=== PATIENT | male | born 1990 | race Caucasian/White ===

== ENCOUNTER 2017-01-23 22:20 | Inpatient (IN) | payer OTHER ==
[2017-01-23 22:25] VITALS: BMI 32.5
--- NOTE | 2017-01-23 23:17 | DR.GENAD ---
HPI - PCP Primary Care Physician: NFD - Complaint/Symptoms Chief Complaint Doctors Comments: Patient complains of pain and swelling in his left arm for the past two days. 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 Family states they are always pulling ticks from his body but has not seen any recently. He denies fever, chills, nausea or vomiting. He deniess chest pain or SOB. States he has been working in the sun and had been tanning but he was at a wedding today and one of the attendants told him he had cellulitis and he needed to go to the doctor. States his last tetanus was 7-8 years ago when he went to [facility]. States he drinks occasionally but denies tobacco or drug usage. States he takes proteins for body building but is not using any injections. He has not local doctor. Chief Complaint:: PT STATES, "MY LEFT ARM HAS BEEN SWELLING AND RED SINCE THURSDAY." - Nurses notes reviewed Nurses Notes Review: Yes - Source History Provided: Patient - Mode of Arrival Mode of Arrival: Ambulatory - Timing Onset of Chief Complaint: 01/20/17 Came on: Gradually - Duration Duration: Constant How lon Duration: Days - Location Location: left arm - Severity Severity: Moderate, Severe - Modifying Factors Worsens:: movement Improves:: nothing PMH - PMH Past Medical History: No Past Surgical History: No - Family History History of Family Medical Conditions: Yes Family Medical History: Diabetes Mellitus - Social History Alcohol Use: Occasionally Do you use any recreational Drugs:: No Lives With: Family Lives Where: Home - infectious screening In the last 2 months have you had wt loss of >10#?: NO Have you had fever, night sweats or hemotysis?: No Have you traveled outside the country in the last 6 months?: No Isolation: Standard ROS - Review of Systems Constitutional: No Symptoms Reported Eyes: No Symptoms Reported. negative: See HPI, Eye Pain, Blurred Vision, Tearing, Discharge, Photophobia, Diplopia, Other ENTM: No Symptoms Reported. negative: See HPI, Ear Pain, Ear Discharge, Pulling on Ears, Hearing Loss, Nose Pain, Nose Discharge, Epistaxis, Nose Congestion, Mouth Pain, Mouth Swelling, Loose Teeth, Drooling, Throat Pain, Throat Swelling, Ear Foreign Body Respiratoy: No Symptoms Reported Cardiovascular: No Symptoms Reported. negative: See HPI, Chest Pain, Edema, Palpitations, Syncope, Cyanosis, Skin Mottling, Other Gastrointestinal/Abdominal: No Symptoms Reported. negative: See HPI, Abdominal Pain, Constipation, Diarrhea, Nausea, Vomiting, Food Intolerance, Other Genitourinary: No Symptoms Reported Neurological: No Symptoms Reported. negative: See HPI, Anxiety, Depressed, Emotional Problems, Headache, Numbness, Paresthesia, Pre-existing Deficit, Seizure, Tingling, Tremors, Weakness, Dizziness, Problems Walking, Speech Problem, Other Musculoskeletal: No Symptoms Reported, Left, Arm (with swelling and pain biceps area with nodule 4 cm, tender) Integumentary: No Symptoms Reported, Lesions, Rash (left arm with swelling and erythema; tender; firm nodule 4 cm left biceps area, upper; no discharge or puncture noted) Hematologic/Lymphatic: No Symptoms Reported Endocrine: No Symptoms Reported Psychiatric: No Symptoms Reported PE - Vital Signs Vitals: Temperature 97.9 F Pulse Rate 85 Respiratory Rate 20 Blood Pressure 157/69 O2 Sat by Pulse Oximetry 99 - General Limitations: No Limitations General Appearance: Alert, In Distress (moderate) - Head Head Exam: Normal Inspection, Atraumatic, Normocephalic - Eyes Eye exam: Normal Appearance, PERRL, EOMI. negative: Scleral Icterus, Conjunctival Injection, Nystagmus, Miosis, Mydrasis, Periorbital Swelling, Periorbital Tenderness, Other - ENT ENT Exam: Normal Exam, Normal Oropharynx, Normal External Ear Exam, Mucous Membranes Moist, TM's Normal Bilaterally External Ear Exam: Normal External Inspection TM/Canal Exam: Bilateral Normal Nose Exam: Normal Nose Exam Mouth Exam: Normal Inspection Throat Exam: Normal Inspection. negative: Tonsillar Erythema, Tonsillomegaly, Tonsillar Exudate, R Peritonsillar Mass, L Peritonsillar Mass, Muffled Voice, Other - Neck Neck Exam: Normal Inspection, Full ROM, Trachea Midline. negative: Tenderness, Meningismus, Lymphadenopathy, Thyromegaly, Other - Chest Chest Inspection: Normal Inspection, Symmetric Chest Wall Rise - Respiratory Respiratory Exam: Normal Lung Sounds Bilat Respiratory Exam: Bilateral Clear to Auscultation - Cardiovascular Cardiovascular Exam: Regular Rate, Normal Rhythm, Normal Heart Sounds. negative : Bradycardia, Tachycardia, Irregular Rhythm, Systolic Murmur, Diastolic Murmur , Rubs, Gallop, Clicks, JVD, +S1, +S2, +S3, +S4, Other - Abdominal Exam Abdominal Exam: Normal Inspection, Normal Bowel Sounds, Soft. negative: Distention, Tenderness, Guarding, Rebound, Rigidity, Dimnished Bowel Sounds, Hyperactive Bowel Sounds, Hypoactive Bowel Sounds, Organomegaly, Trauma, Incision, Ascites, Mass, Bruit, Pulsatile Mass, Hernia, Other Abdominal Tenderness: negative: RUQ, RLQ, LUQ, LLQ, Epigastrium, Suprapubic, Diffuse, Mild, Moderate, Severe, Other - Extremities Extremities Exam: Normal Inspection, Full ROM, Tenderness (right arm with tenderness, red, erythematous with 4 cm firm nodule proximal biceps;no discharge or puncture noted), Normal Capillary Refill. negative: Edema, Joint Swelling, Calf Tenderness, Other - Back Back Exam: Normal Inspection, Full ROM. negative: Tenderness, (R) CVA Tenderness, (L) CVA Tenderness, Muscle Spasm, Paraspinal Tenderness, Vertebral Tenderness, Rashes, (R) Sciatic Notch Tenderness, (L) Sciatic Notch Tendern, (R ) Straight Leg Raise, (L) Straight Leg Raise, Other - Neurologic Neurological Exam: Alert, Oriented X3, CN II-XII Intact, Normal Gait, Reflexes Normal - Psychiatric Psychiatric Exam: Normal Affect, Normal Mood. negative: Depressed, Agitated, Anxious, Flat Affect, Manic, Homicidal Ideation, Suicidal Ideation, Other - Skin Skin Exam: Warm, Dry, Intact, Normal Color, Rash, Erythema (right upper arm with erythema, swelling and tenderness) Course - Reevaluation 1st: Improved - Consultation Called: 02:26 Call Returned: 02:26 (Dr. Campos to admit) - Education/Counseling Education/Counseling: Patient, Family Educated On: Treatment, Diagnosis, Prognosis, Needs for Follow Up ROR - Labs Reviewed Laboratory Results Reviewed?: Yes (all labs and x-ray results reviewed and discussed with patient) Result Diagrams: 01/23/17 23:15 01/23/17 23:15 Laboratory: WBC 14.0 X10^3/uL (3.6-10.0) H 01/23/17 23:15 RBC 4.72 X10^6/uL (4.7-6.0) 01/23/17 23:15 Hgb 15.0 g/dL (13.5-18.0) 01/23/17 23:15 Hct 43.6 % (42.0-54.0) 01/23/17 23:15 MCV 92.4 fL (80.0-100.0) 01/23/17 23:15 MCH 31.7 pg (27.0-34.0) 01/23/17 23:15 MCHC 34.3 g/dL (33.0-35.0) 01/23/17 23:15 RDW 13.4 % (11.6-16.5) 01/23/17 23:15 Plt Count 144 X10^3/uL (150.0-450.0) L 01/23/17 23:15 MPV 9.8 fL (7.4-11.0) 01/23/17 23:15 Neut % 75.4 % (42.0-75.0) H 01/23/17 23:15 Lymph % 15.5 % (21.0-51.0) L 01/23/17 23:15 [place] % 8.1 % (0.0-13.0) 01/23/17 23:15 Eos % 0.5 % (0.9-2.9) L 01/23/17 23:15 Baso % 0.5 % (0.2-1.0) 01/23/17 23:15 Neut # 10.6 x10^3/uL (2.2-4.8) H 01/23/17 23:15 Lymph # 2.2 X10^3/uL (1.3-2.9) 01/23/17 23:15 [place] # 1.1 x10^3/uL (0.3-0.8) H 01/23/17 23:15 Eos # 0.1 x10^3/uL (0.0-0.2) 01/23/17 23:15 Baso # 0.1 X10^3/uL (0.0-0.1) 01/23/17 23:15 Absolute Nucleated RBC 0.0 /100WBC 01/23/17 23:15 INR Target Range - 01/23/17 23:15 INR 1.12 (0.8-1.3) 01/23/17 23:15 PTT 31.3 SECONDS (22.9-36.5) 01/23/17 23:15 PTT Comment - 01/23/17 23:15 D-Dimer 445 ng/mL (0-400) H* 01/23/17 23:15 Sodium 141 mmol/L (136-145) 01/23/17 23:15 Corrected Sodium TNP 01/23/17 23:15 Potassium 3.4 mmol/L (3.5-5.1) L 01/23/17 23:15 Chloride 105 mmol/L (98-107) 01/23/17 23:15 Carbon Dioxide 27.2 mmol/L (21-32) 01/23/17 23:15 BUN 13 mg/dL (7-18) 01/23/17 23:15 Creatinine 1.27 mg/dL (0.70-1.30) 01/23/17 23:15 Est GFR (MDRD) Af Amer > 60 (>60) 01/23/17 23:15 Est GFR (MDRD) Non-Af > 60 (>60) 01/23/17 23:15 Glucose 104 mg/dL (65-99) H 01/23/17 23:15 Lactic Acid 0.7 mmol/L (0.4-2.0) 01/23/17 23:15 Calcium 8.9 mg/dL (8.5-10.1) 01/23/17 23:15 Corrected Calcium TNP 01/23/17 23:15 Total Bilirubin 0.60 mg/dL (0.2-1.0) 01/23/17 23:15 AST 27 Units/L (15-37) 01/23/17 23:15 ALT 28 Units/L (12-78) 01/23/17 23:15 Alkaline Phosphatase 70 Units/L (46-116) 01/23/17 23:15 Total Protein 7.5 g/dL (6.4-8.2) 01/23/17 23:15 Albumin 3.6 g/dL (3.4-5.0) 01/23/17 23:15 Globulin 3.9 g/dL (2.5-4.5) 01/23/17 23:15 Albumin/Globulin Ratio 0.9 Ratio (1.1-2.1) L 01/23/17 23:15 - XRAY XRAY Interpreted by: Radiologist (X-ray left humrus: Ciarra cute osseous abnormality. Cellulitis possible. CXR: no acute chest process) XRAY Findings: Doppler L upper arm: Nolef uper extremity deep vein thrombus identified. - Diagnosis Discharge Problem: Cellulitis of left upper arm, Hypokalemia - Discharge Plan Disposition: ADMITTED INPATIENT Condition: Stable - Follow ups/Referrals Follow ups/Referrals: NFD,None [Primary Care Provider] - 3 days - Instructions
[2017-01-23 23:38] LABS: BASOPHILS # (AUTO) 0.1 X10^3/uL (0.0-0.1); BASOPHILS % (AUTO) 0.5 % (0.2-1.0); EOSINOPHILS # (AUTO) 0.1 x10^3/uL (0.0-0.2); EOSINOPHILS % (AUTO) 0.5 % (0.9-2.9); HEMATOCRIT 43.6 % (42.0-54.0); LYMPHOCYTES # (AUTO) 2.2 X10^3/uL (1.3-2.9); LYMPHOCYTES % (AUTO) 15.5 % (21.0-51.0); MEAN CORPUSCULAR HEMOGLOBIN 31.7 pg (27.0-34.0); MEAN CORPUSCULAR HGB CONC 34.3 g/dL (33.0-35.0); MEAN CORPUSCULAR VOLUME 92.4 fL (80.0-100.0); MEAN PLATELET VOLUME 9.8 fL (7.4-11.0); MONOCYTES # (AUTO) 1.1 x10^3/uL (0.3-0.8); MONOCYTES % (AUTO) 8.1 % (0.0-13.0); NEUTROPHILS # (AUTO) 10.6 x10^3/uL (2.2-4.8); NEUTROPHILS % (AUTO) 75.4 % (42.0-75.0); PLATELET COUNT 144 X10^3/uL (150.0-450.0); RED BLOOD COUNT 4.72 X10^6/uL (4.7-6.0); RED CELL DISTRIBUTION WIDTH 13.4 % (11.6-16.5)
[2017-01-23] MEDS ORDERED: NS 1000 ML 1,000 ML IV SCH (23:45)
[2017-01-23 23:49] LABS: ALANINE AMINOTRANSFERASE 28 Units/L (12-78); ALBUMIN 3.6 g/dL (3.4-5.0); ALKALINE PHOSPHATASE 70 Units/L (46-116); ASPARTATE AMINO TRANSFERASE 27 Units/L (15-37); BLOOD UREA NITROGEN 13 mg/dL (7-18); CALCIUM 8.9 mg/dL (8.5-10.1); CARBON DIOXIDE 27.2 mmol/L (21-32); CHLORIDE 105 mmol/L (98-107); CREATININE 1.27 mg/dL (0.70-1.30); GLUCOSE 104 mg/dL (65-99); SODIUM 141 mmol/L (136-145); TOTAL PROTEIN 7.5 g/dL (6.4-8.2); eGFR BLACK RACES > 60 (>60); eGFR NON BLACK RACES > 60 (>60)
[2017-01-23] MEDS ORDERED: MERREM VIAL 1,000 MG in NS 100 ML IV 100 ML IV STA (23:55)
[2017-01-24] MEDS ORDERED: NS 100 ML IV 100 ML IV ONE ×2 (00:01→14:14)
[2017-01-24] MEDS ORDERED: MERREM VIAL ONE (00:02)
[2017-01-24 00:09] LABS: LACTIC ACID 0.7 mmol/L (0.4-2.0)
[2017-01-24 00:16] LABS: D DIMER 445 ng/mL (0-400)
--- NOTE | 2017-01-24 00:40 | RAD ---
Left humerus two views Indication: Possible cellulitis. Findings: There is no cortical lucency or malalignment. Shoulder and elbow joints are grossly intact . Mild subcutaneous soft tissue stranding suggested. Impression: No acute osseous abnormality. Cellulitis possible Reported By:
--- NOTE | 2017-01-24 00:40 | RAD ---
Chest AP portable Indication: Chest pain. Findings: There is no pneumothorax, effusion or consolidation. Heart size is normal. Impression: No acute chest process. Reported By:
--- NOTE | 2017-01-24 01:33 | VAS ---
Ultrasound left upper extremity venous Doppler Indication: Left arm cellulitis Technique: Dynamic grayscale, color and spectral Doppler flow is a left upper extremity with barbara cirilo techniques. Findings: The left jugular and subclavian vein show normal respiratory phasicity and are patent. The left brachial vein, basilic vein and axillary vein are patent and compressible. Subcutaneous edema noted. Impression: No left upper extremity deep vein thrombus identified. Cellulitis suggested. Reported By:
[2017-01-24] MEDS ORDERED: NORCO 5/325 MG TAB PO PRN (02:35)
[2017-01-24] MEDS ORDERED: PHENERGAN TAB 25 MG PO PRN (02:35)
[2017-01-24] MEDS ORDERED: VANCOMYCIN 1 GM PREMIX (ADDVANTAGE) 250 ML IV SCH (03:00)
[2017-01-24] MEDS ORDERED: ZOSYN VIAL 3.375 GM IV ONE (04:01)
[2017-01-24] MEDS ORDERED: NS 100 ML IV + SPIKE MINIBAG* 100 ML IV ONE (04:02)
[2017-01-24] MEDS: D5 1/2 NS + KCL 20 MEQ/L 1,000 ML IV SCH ×2 (04:08→15:03)
[2017-01-24] MEDS ORDERED: ZOSYN VIAL 3.375 GM 3.375 GM in NS 100 ML IV + SPIKE MINIBAG* 100 ML IV SCH (06:00)
[2017-01-24 07:07] LABS: BASOPHILS % (AUTO) 0.3 % (0.2-1.0); EOSINOPHILS # (AUTO) 0.1 x10^3/uL (0.0-0.2); EOSINOPHILS % (AUTO) 0.4 % (0.9-2.9); HEMATOCRIT 44.8 % (42.0-54.0); HEMOGLOBIN 15.1 g/dL (13.5-18.0); LYMPHOCYTES # (AUTO) 1.6 X10^3/uL (1.3-2.9); LYMPHOCYTES % (AUTO) 10.6 % (21.0-51.0); MEAN CORPUSCULAR HEMOGLOBIN 31.4 pg (27.0-34.0); MEAN CORPUSCULAR HGB CONC 33.8 g/dL (33.0-35.0); MEAN CORPUSCULAR VOLUME 93.1 fL (80.0-100.0); MEAN PLATELET VOLUME 10.1 fL (7.4-11.0); MONOCYTES # (AUTO) 1.2 x10^3/uL (0.3-0.8); MONOCYTES % (AUTO) 7.9 % (0.0-13.0); NEUTROPHILS # (AUTO) 11.9 x10^3/uL (2.2-4.8); NEUTROPHILS % (AUTO) 80.8 % (42.0-75.0); PLATELET COUNT 146 X10^3/uL (150.0-450.0); RED BLOOD COUNT 4.81 X10^6/uL (4.7-6.0); RED CELL DISTRIBUTION WIDTH 13.6 % (11.6-16.5); WHITE BLOOD COUNT 14.8 X10^3/uL (3.6-10.0)
[2017-01-24] MEDS: LOVENOX INJ 40 MG SYR SC SCH (08:29)
[2017-01-24] MEDS: PROTONIX INJ 40 MG VIAL IVP SCH (08:29)
[2017-01-24] MEDS: MOTRIN TAB 600 MG PO PRN ×2 (12:07→13:01)
[2017-01-24] MEDS ORDERED: TYGACIL 50 MG VIAL 100 MG in NS 100 ML IV 100 ML IV ONE (12:58)
[2017-01-24] MEDS ORDERED: BENADRYL INJ 50 MG VIAL ONE (14:15)
[2017-01-24] MEDS ORDERED: TYGACIL 50 MG VIAL IV ONE (14:15)
[2017-01-24] MEDS ORDERED: SOLU-Medrol 40 MG VIAL ONE (14:16)
[2017-01-24] MEDS: SOLU-Medrol 40 MG VIAL IVP SCH ×2 (14:33→22:21)
[2017-01-24] MEDS: BENADRYL INJ 50 MG VIAL IVP SCH ×2 (14:33→18:16)
--- NOTE | 2017-01-24 14:45 | US ---
HISTORY: Cellulitis, possible abscess Study: Limited soft tissue ultrasound Comparison: None Technique: Multiple scale and color flow images of the left upper extremity were obtained. Findings: There is soft tissue edema compatible with history cellulitis but no fluid collections are seen. IMPRESSION: 1. Soft tissue swelling with no fluid collections. Reported By:
[2017-01-24] MEDS: VANCOMYCIN HCL IV SCH (15:34)
[2017-01-24] MEDS: NS IV SCH (15:34)
[2017-01-24] MEDS: TYGACIL 50 MG VIAL 50 MG in NS 100 ML IV 100 ML IV SCH (22:21)
[2017-01-25] MEDS: BENADRYL INJ 50 MG VIAL IVP SCH ×2 (00:59→06:05)
[2017-01-25] MEDS: D5 1/2 NS + KCL 20 MEQ/L 1,000 ML IV SCH ×4 (00:59→18:28)
[2017-01-25] MEDS: SOLU-Medrol 40 MG VIAL IVP SCH (06:04)
[2017-01-25 06:28] LABS: BASOPHILS % (AUTO) 0.1 % (0.2-1.0); HEMATOCRIT 48.3 % (42.0-54.0); HEMOGLOBIN 16.2 g/dL (13.5-18.0); LYMPHOCYTES # (AUTO) 0.9 X10^3/uL (1.3-2.9); LYMPHOCYTES % (AUTO) 6.6 % (21.0-51.0); MEAN CORPUSCULAR HEMOGLOBIN 31.2 pg (27.0-34.0); MEAN CORPUSCULAR HGB CONC 33.5 g/dL (33.0-35.0); MEAN CORPUSCULAR VOLUME 93.2 fL (80.0-100.0); MEAN PLATELET VOLUME 10.2 fL (7.4-11.0); MONOCYTES # (AUTO) 0.2 x10^3/uL (0.3-0.8); MONOCYTES % (AUTO) 1.1 % (0.0-13.0); NEUTROPHILS % (AUTO) 92.2 % (42.0-75.0); PLATELET COUNT 166 X10^3/uL (150.0-450.0); RED BLOOD COUNT 5.18 X10^6/uL (4.7-6.0); RED CELL DISTRIBUTION WIDTH 13.3 % (11.6-16.5); WHITE BLOOD COUNT 14.1 X10^3/uL (3.6-10.0)
[2017-01-25 06:41] LABS: ALANINE AMINOTRANSFERASE 22 Units/L (12-78); ALBUMIN 3.2 g/dL (3.4-5.0); ALKALINE PHOSPHATASE 75 Units/L (46-116); ASPARTATE AMINO TRANSFERASE 20 Units/L (15-37); BLOOD UREA NITROGEN 14 mg/dL (7-18); CALCIUM 8.8 mg/dL (8.5-10.1); CARBON DIOXIDE 21.2 mmol/L (21-32); CHLORIDE 106 mmol/L (98-107); COR CA(FOR HYPOALB) 9.4 mg/dL (8.5-10.1); COR NA(FOR HYPERGLY) 140 mmol/L (136-145); CREATININE 1.04 mg/dL (0.70-1.30); GLUCOSE 157 mg/dL (65-99); SODIUM 139 mmol/L (136-145); TOTAL PROTEIN 7.4 g/dL (6.4-8.2); eGFR BLACK RACES > 60 (>60); eGFR NON BLACK RACES > 60 (>60)
[2017-01-25 07:39] LABS: BAND NEUTROPHILS % 5 % (0-10); PLATELET MORPHOLOGY COMMENT NORMAL (NORMAL)
[2017-01-25] MEDS: NS IV SCH ×2 (10:03→21:00)
[2017-01-25] MEDS: VANCOMYCIN HCL IV SCH ×2 (10:03→21:00)
[2017-01-25] MEDS: TYGACIL 50 MG VIAL 50 MG in NS 100 ML IV 100 ML IV SCH ×2 (10:03→22:57)
[2017-01-25] MEDS: PROTONIX INJ 40 MG VIAL IVP SCH (10:03)
[2017-01-25] MEDS: LOVENOX INJ 40 MG SYR SC SCH (10:03)
[2017-01-25] MEDS ORDERED: PHARMACY COMMENT IV SCH (20:45)
[2017-01-25] MEDS: MOTRIN TAB 600 MG PO PRN (20:59)
[2017-01-26 05:20] LABS: BASOPHILS % (AUTO) 0.2 % (0.2-1.0); HEMATOCRIT 45.6 % (42.0-54.0); HEMOGLOBIN 15.1 g/dL (13.5-18.0); LYMPHOCYTES # (AUTO) 1.4 X10^3/uL (1.3-2.9); LYMPHOCYTES % (AUTO) 7.1 % (21.0-51.0); MEAN CORPUSCULAR HEMOGLOBIN 31.1 pg (27.0-34.0); MEAN CORPUSCULAR HGB CONC 33.2 g/dL (33.0-35.0); MEAN CORPUSCULAR VOLUME 93.7 fL (80.0-100.0); MEAN PLATELET VOLUME 10.9 fL (7.4-11.0); MONOCYTES % (AUTO) 5.1 % (0.0-13.0); NEUTROPHILS % (AUTO) 87.6 % (42.0-75.0); PLATELET COUNT 170 X10^3/uL (150.0-450.0); RED BLOOD COUNT 4.86 X10^6/uL (4.7-6.0); RED CELL DISTRIBUTION WIDTH 13.5 % (11.6-16.5); WHITE BLOOD COUNT 19.4 X10^3/uL (3.6-10.0)
[2017-01-26 05:32] LABS: ALANINE AMINOTRANSFERASE 20 Units/L (12-78); ALKALINE PHOSPHATASE 68 Units/L (46-116); ASPARTATE AMINO TRANSFERASE 13 Units/L (15-37); BLOOD UREA NITROGEN 17 mg/dL (7-18); CALCIUM 8.4 mg/dL (8.5-10.1); CARBON DIOXIDE 24.1 mmol/L (21-32); CHLORIDE 107 mmol/L (98-107); COR CA(FOR HYPOALB) 9.2 mg/dL (8.5-10.1); COR NA(FOR HYPERGLY) 140 mmol/L (136-145); CREATININE 1.02 mg/dL (0.70-1.30); GLUCOSE 120 mg/dL (65-99); SODIUM 140 mmol/L (136-145); TOTAL PROTEIN 6.7 g/dL (6.4-8.2); eGFR BLACK RACES > 60 (>60); eGFR NON BLACK RACES > 60 (>60)
[2017-01-26] MEDS: D5 1/2 NS + KCL 20 MEQ/L 1,000 ML IV SCH ×2 (07:15→08:46)
[2017-01-26] MEDS: PROTONIX INJ 40 MG VIAL IVP SCH (08:45)
[2017-01-26] MEDS: LOVENOX INJ 40 MG SYR SC SCH (08:45)
[2017-01-26 09:21] LABS: CREATININE 0.99 mg/dL (0.70-1.30); VANCOMYCIN,TROUGH 4.2 ug/mL (15-20)
[2017-01-26] MEDS: VANCOMYCIN HCL IV SCH (10:30)
[2017-01-26] MEDS: NS IV SCH (10:30)
[2017-01-26] MEDS: TYGACIL 50 MG VIAL 50 MG in NS 100 ML IV 100 ML IV SCH ×2 (13:44→22:43)
--- NOTE | 2017-01-26 13:51 | PCM.PROG ---
Progress Note - Progress Note for Day of Date: 01/26/17 - Subjective Subjective: left upper arm pain and redness with localized swelling, continue iv atbx, elevate lue. pain control - Past Medical Family Social History Past Med/Fam/Surg Hx: No changes since H&P Allergies: Allergies Ceftibuten [From Cedax] Allergy (Verified 01/23/17 22:26) - Review of Systems ROS: No change since H&P - Vital Signs and I&O's Vital Signs: Temperature 97.8 F Pulse Rate [Right Radial] 66 Respiratory Rate 18 Blood Pressure [Left Arm] 117/57 Blood Pressure [Right Arm] 141/58 O2 Sat by Pulse Oximetry 96 Intake and Output: Intake & Output 01/24/17 01/25/17 01/26/17 01/27/17 11:59 11:59 11:59 11:59 Intake Total 100 2550 4606 Balance 100 2550 4606 - Physical Exam Oriented: Normal Eyes: Normal Ear: Normal Nose: Normal Throat: Normal Respiratory: Normal Cardiovascular: Normal : Normal Auscultation: Bowel Sounds: Normal Palpation: Normal Tenderness: Normal Skin: Normal Musculoskeletal: Swelling, Tender Psychiatric: Normal Mood Description: Calm Speech Pattern: Clear, Appropriate - Laboratory and Diagnostics Result Diagrams: 01/26/17 03:31 01/26/17 09:00 Labs: Laboratory WBC 19.4 X10^3/uL (3.6-10.0) H 01/26/17 03:31 RBC 4.86 X10^6/uL (4.7-6.0) 01/26/17 03:31 Hgb 15.1 g/dL (13.5-18.0) 01/26/17 03:31 Hct 45.6 % (42.0-54.0) 01/26/17 03:31 MCV 93.7 fL (80.0-100.0) 01/26/17 03:31 MCH 31.1 pg (27.0-34.0) 01/26/17 03:31 MCHC 33.2 g/dL (33.0-35.0) 01/26/17 03:31 RDW 13.5 % (11.6-16.5) 01/26/17 03:31 Plt Count 170 X10^3/uL (150.0-450.0) 01/26/17 03:31 Plt Count Comment Adequate (ADEQUATE) 01/25/17 05:20 MPV 10.9 fL (7.4-11.0) 01/26/17 03:31 Neut % 87.6 % (42.0-75.0) H 01/26/17 03:31 Lymph % 7.1 % (21.0-51.0) L 01/26/17 03:31 [place] % 5.1 % (0.0-13.0) 01/26/17 03:31 Eos % 0.0 % (0.9-2.9) L 01/26/17 03:31 Baso % 0.2 % (0.2-1.0) 01/26/17 03:31 Neut # 17.0 x10^3/uL (2.2-4.8) H 01/26/17 03:31 Lymph # 1.4 X10^3/uL (1.3-2.9) 01/26/17 03:31 [place] # 1.0 x10^3/uL (0.3-0.8) H 01/26/17 03:31 Eos # 0.0 x10^3/uL (0.0-0.2) 01/26/17 03:31 Baso # 0.0 X10^3/uL (0.0-0.1) 01/26/17 03:31 Absolute Nucleated RBC 0.0 /100WBC 01/26/17 03:31 Total Counted 100 01/25/17 05:20 Neutrophils % (Manual) 88 % (39-76) H 01/25/17 05:20 Band Neutrophils % 5 % (0-10) 01/25/17 05:20 Lymphocytes % (Manual) 4 % (13-43) L 01/25/17 05:20 Monocytes % (Manual) 1 % (4-9) L 01/25/17 05:20 Eosinophils % (Manual) 2 % (0-6) 01/25/17 05:20 Plt Morphology Comment Normal (NORMAL) 01/25/17 05:20 RBC Morphology Normal (NORMAL) 01/25/17 05:20 INR Target Range - 01/23/17 23:15 INR 1.12 (0.8-1.3) 01/23/17 23:15 PTT 31.3 SECONDS (22.9-36.5) 01/23/17 23:15 PTT Comment - 01/23/17 23:15 D-Dimer 445 ng/mL (0-400) H* 01/23/17 23:15 Sodium 140 mmol/L (136-145) 01/26/17 03:31 Corrected Sodium 140 mmol/L (136-145) 01/26/17 03:31 Potassium 4.1 mmol/L (3.5-5.1) 01/26/17 03:31 Chloride 107 mmol/L (98-107) 01/26/17 03:31 Carbon Dioxide 24.1 mmol/L (21-32) 01/26/17 03:31 BUN 17 mg/dL (7-18) 01/26/17 03:31 Creatinine 0.99 mg/dL (0.70-1.30) 01/26/17 09:00 Est GFR (MDRD) Af Amer > 60 (>60) 01/26/17 03:31 Est GFR (MDRD) Non-Af > 60 (>60) 01/26/17 03:31 Glucose 120 mg/dL (65-99) H 01/26/17 03:31 Lactic Acid 0.7 mmol/L (0.4-2.0) 01/23/17 23:15 Calcium 8.4 mg/dL (8.5-10.1) L 01/26/17 03:31 Corrected Calcium 9.2 mg/dL (8.5-10.1) 01/26/17 03:31 Total Bilirubin 0.40 mg/dL (0.2-1.0) 01/26/17 03:31 AST 13 Units/L (15-37) L 01/26/17 03:31 ALT 20 Units/L (12-78) 01/26/17 03:31 Alkaline Phosphatase 68 Units/L (46-116) 01/26/17 03:31 Total Protein 6.7 g/dL (6.4-8.2) 01/26/17 03:31 Albumin 3.0 g/dL (3.4-5.0) L 01/26/17 03:31 Globulin 3.7 g/dL (2.5-4.5) 01/26/17 03:31 Albumin/Globulin Ratio 0.8 Ratio (1.1-2.1) L 01/26/17 03:31 Vancomycin Trough 4.2 ug/mL (15-20) L 01/26/17 09:00 Urine Opiates Screen Negative (NEG=<300) 01/24/17 03:44 Urine Methadone Screen Negative (NEG=<300) 01/24/17 03:44 Ur Barbiturates Screen Negative (NEG=<200) 01/24/17 03:44 Ur Phencyclidine Scrn Negative (NEG=<25) 01/24/17 03:44 Ur Amphetamines Screen Negative (NEG=<1000) 01/24/17 03:44 U Benzodiazepines Scrn Negative (NEG=<200) 01/24/17 03:44 Urine Cocaine Screen Negative (NEG=<300) 01/24/17 03:44 U Marijuana (THC) Screen Negative (NEG=<50) 01/24/17 03:44 - Plan (1) Cellulitis of left upper arm Status: Acute Plan: REPEAT AM LABS, CONTINUE IV ANTIBIOTICS, IV PAIN CONTROL. PT, ELEVATE LUE
[2017-01-26] MEDS ORDERED: VANCOMYCIN HCL 500 MG VIAL 500 MG, VANCOMYCIN HCL 1 GM VIAL 1 GM in D5W 250 ML IV 250 ML IV SCH (17:00)
[2017-01-26] MEDS ORDERED: VANCOMYCIN 1 GM PREMIX (ADDVANTAGE) 250 ML IV SCH (17:00)
[2017-01-26] MEDS ORDERED: VANCOMYCIN HCL 500 MG VIAL ONE (17:36)
[2017-01-26] MEDS ORDERED: D5W 250 ML IV 250 ML IV ONE (17:36)
[2017-01-26] MEDS ORDERED: VANCOMYCIN HCL 1 GM VIAL ONE (17:36)
[2017-01-26] MEDS: VANCOMYCIN HCL 500 MG VIAL 500 MG, VANCOMYCIN HCL 1 GM VIAL 1 GM in D5W 250 ML IV 250 ML IV SCH (17:42)
[2017-01-27] MEDS ORDERED: D5W 250 ML IV 250 ML IV ONE ×2 (00:53→05:33)
[2017-01-27] MEDS ORDERED: VANCOMYCIN HCL 500 MG VIAL ONE ×2 (00:53→05:32)
[2017-01-27] MEDS ORDERED: VANCOMYCIN HCL 1 GM VIAL ONE ×2 (00:53→05:32)
[2017-01-27] MEDS: VANCOMYCIN HCL 500 MG VIAL 500 MG, VANCOMYCIN HCL 1 GM VIAL 1 GM in D5W 250 ML IV 250 ML IV SCH ×2 (01:06→06:00)
[2017-01-27 06:14] LABS: BASOPHILS # (AUTO) 0.1 X10^3/uL (0.0-0.1); BASOPHILS % (AUTO) 0.6 % (0.2-1.0); EOSINOPHILS % (AUTO) 0.5 % (0.9-2.9); HEMATOCRIT 47.8 % (42.0-54.0); LYMPHOCYTES # (AUTO) 2.7 X10^3/uL (1.3-2.9); LYMPHOCYTES % (AUTO) 29.7 % (21.0-51.0); MEAN CORPUSCULAR HEMOGLOBIN 31.3 pg (27.0-34.0); MEAN CORPUSCULAR HGB CONC 33.4 g/dL (33.0-35.0); MEAN CORPUSCULAR VOLUME 93.6 fL (80.0-100.0); MEAN PLATELET VOLUME 10.5 fL (7.4-11.0); MONOCYTES # (AUTO) 0.8 x10^3/uL (0.3-0.8); NEUTROPHILS # (AUTO) 5.5 x10^3/uL (2.2-4.8); NEUTROPHILS % (AUTO) 60.2 % (42.0-75.0); PLATELET COUNT 170 X10^3/uL (150.0-450.0); RED CELL DISTRIBUTION WIDTH 13.6 % (11.6-16.5); WHITE BLOOD COUNT 9.1 X10^3/uL (3.6-10.0)
[2017-01-27 07:02] LABS: ERYTHROCYTE SEDIMENTATION RATE 8 MM/HOUR (0-15)
[2017-01-27 07:54] LABS: ALANINE AMINOTRANSFERASE 21 Units/L (12-78); ALBUMIN 3.1 g/dL (3.4-5.0); ALKALINE PHOSPHATASE 71 Units/L (46-116); ASPARTATE AMINO TRANSFERASE 10 Units/L (15-37); BLOOD UREA NITROGEN 15 mg/dL (7-18); CALCIUM 8.5 mg/dL (8.5-10.1); CARBON DIOXIDE 23.7 mmol/L (21-32); CHLORIDE 106 mmol/L (98-107); COR CA(FOR HYPOALB) 9.2 mg/dL (8.5-10.1); CREATININE 1.09 mg/dL (0.70-1.30); GLUCOSE 81 mg/dL (65-99); SODIUM 142 mmol/L (136-145); TOTAL PROTEIN 6.7 g/dL (6.4-8.2); eGFR BLACK RACES > 60 (>60); eGFR NON BLACK RACES > 60 (>60)
[2017-01-27] MEDS: PROTONIX INJ 40 MG VIAL IVP SCH (10:39)
[2017-01-27] MEDS: LOVENOX INJ 40 MG SYR SC SCH (10:39)
[2017-01-27] MEDS: TYGACIL 50 MG VIAL 50 MG in NS 100 ML IV 100 ML IV SCH (10:39)
[2017-01-27 12:24] VITALS: BP 133/68
== END 2017-01-27 12:35 | disposition home or self-care (01) | DRG 603 ==
LOC: ER 22:20 → MED/SURG 01-24 02:34
PROVIDERS: ADMIT Internal Medicine; ATTEND Internal Medicine
DX: L03.113 Cellulitis of right upper limb (principal); E87.6 Hypokalemia; M79.89 Other specified soft tissue disorders; M79.622 Pain in left upper arm
CPT/HCPCS: 36415; 71010; 73060; 76881; 80053; 80202; 80307; 82565; 83605; 85025; 85378; 85610; 85652; 85730; 86140; 87040; 93971; 96365; 96367; 96374; 99231; 99284; A4216; A4222; C9113; G0434; J1200; J1650; J2185; J2543; J2920; J3370